=== PATIENT | female | born 1990 | race Caucasian/White ===

== ENCOUNTER 2019-02-13 08:05 | Emergency (ER) | payer SELFPAY ==
[~2019-02-13] VITALS: Ht 160 cm; Wt 83.0 kg
[~2019-02-13 08:05] MED LIST: CEPHALEXIN500 MG PO; CITALOPRAM HBR20 MG PO; CLINDAMYCIN HC300 MG PO; FLUOXETINE HCL20 MG PO; NORCO 5-325 TA1 EACH PO; PRENATAL CAPSU1 EACH PO; ZOFRAN ODT4 MG PO
[2019-02-13] MEDS ORDERED: PROMETHAZINE HC25 M1 PO (09:57)
== END 2019-02-13 10:17 | disposition home or self-care (01) ==
LOC: ED 08:05
DX: J02.9 Acute pharyngitis, unspecified (principal); F17.200 Nicotine dependence, unspecified, uncomplicated
CPT/HCPCS: 80053; 85025; 87880; 96361; 96374; 96375; 99284-25; J1885; J2405; J7030

== ENCOUNTER 2019-05-02 15:55 | Emergency (ER) | payer SELFPAY ==
[~2019-05-02] VITALS: Ht 160 cm; Wt 83.0 kg
[~2019-05-02 15:55] MED LIST changes: +PROMETHAZINE HC25 M1 PO
== END 2019-05-02 21:10 | disposition home or self-care (01) ==
LOC: ED 15:55
DX: K52.9 Noninfective gastroenteritis and colitis, unspecified (principal); F17.200 Nicotine dependence, unspecified, uncomplicated; Z71.6 Tobacco abuse counseling
CPT/HCPCS: 76705; 80053; 81001; 83690; 83735; 84703; 85025; 96361; 99284-25; 99406; J2405; J7030; J7040

== ENCOUNTER 2020-09-04 15:54 | Emergency (ER) | payer OTHER ==
[~2020-09-04] VITALS: Ht 160 cm; Wt 95.2 kg
--- NOTE | 2020-09-06 11:31 | EKG ---
[facility] [address] [facility] [place] [address] Signed Normal sinus rhythm Anterior infarct , age undetermined Abnormal ECG No previous ECGs available Confirmed by AIDEN FUNEZ MD ([id number]) on 09/06/2020 11:30:55 AM Electronically Signed By: AIDEN FUNEZ MD 09/06/20 113 PATIENT NAME: LINUS CHAPMAN Electrocardiogram DATE OF : 86 PHYSICIAN: AIDEN FUNEZ MD REPORT #: [id number] REPORT IS CONFIDENTIAL AND NOT TO BE RELEASED WITHOUT AUTHORIZATION
== END 2020-09-04 18:42 | disposition home or self-care (01) ==
LOC: ED 15:54
DX: R07.89 Other chest pain (principal); F17.200 Nicotine dependence, unspecified, uncomplicated
CPT/HCPCS: 71045; 80053; 84484; 85025; 93005; 93010; 99285-25

== ENCOUNTER 2022-03-28 13:24 | Emergency (ER) | payer OTHER ==
[~2022-03-28] VITALS: Ht 160 cm; Wt 74.8 kg
== END 2022-03-28 17:17 | disposition home or self-care (01) ==
LOC: ED 13:24
DX: H10.89 Other conjunctivitis (principal); F17.200 Nicotine dependence, unspecified, uncomplicated
CPT/HCPCS: 99283; A9270

== ENCOUNTER 2024-09-26 04:51 | Inpatient (IN) | payer OTHER ==
[~2024-09-26] VITALS: Ht 157.5 cm; Wt 76.2 kg
--- NOTE | ~2024-09-26 | OR ---
[facility] [address] [place], [place] [address] Draft DATE OF OPERATION: 09/26/2024 SURGEON: Raghav Hill DO PREOPERATIVE DIAGNOSES: 1. Intrauterine at 36 and six weeks gestation. 2. History of prior section. 3. Labor. POSTOPERATIVE DIAGNOSES: 1. Intrauterine at 36 and six weeks gestation. 2. History of prior section. 3. Labor. PROCEDURE PERFORMED: Repeat low transverse section. TECHNOLOGY TRAINER: PIPE FITTER GAS PIPE. ANESTHESIA: Spinal with postoperative TAP block. QUANTITATIVE BLOOD LOSS: 360 mL. COMPLICATIONS: None. DRAINS: Valverde to gravity. SPECIMENS: Cord blood for routine analysis. FINDINGS: Delivery of viable female , 6 pounds 15 ounces with Apgars of 8 and 9 born in the DEMETRIA position via low transverse uterine incision. Normal uterus, tubes, and ovaries other than a high scarred bladder that was easily taken down with a bladder flap. Clear amniotic fluid. No nuchal cord. GBS unknown and preoperative glucose was 95. PATIENT NAME: LINUS GONZALES OPERATIVE REPORT DATE OF : [birth year] REPORT #: [id number] PHYSICIAN: RAGHAV HILL (MIRIAN) PCP: RAGHAV HILL (MIRIAN) REPORT IS CONFIDENTIAL AND NOT TO BE RELEASED WITHOUT AUTHORIZATION [facility] [address] [place] [id number] Draft INDICATIONS: Ms. Gonzales is a very pleasant 34-year-old, G5, P4 with one prior , who presented to Labor and Delivery and advanced labor. complicated by history of prior with two interval successful VBACs. She planned on completing delivery at [facility]. However, she had not received any OB care for the past several weeks at [facility] and had not completed her 1 hour glucose or GBS screening. Upon presentation, patient was noted to be 9 cm and desired repeat . Risks, benefits, and alternatives were discussed in detail with the patient. Preoperative glucose was obtained and was 95. TECHNIQUE: The patient was taken to the OR where a time-out was performed to confirm correct patient and correct procedure. Spinal anesthesia was adequately established. The patient had been given terbutaline upon admission. The patient was then prepped and draped in the supine position with ICPs on a running and a bump under the right hip. A Valverde catheter was inserted. The patient received Ancef 2 g preoperatively and no heparin was indicated. Once spinal was noted to be adequate, a Pfannenstiel skin incision was made through the prior scar and carried down to the fascia. Fascia was nicked in the midline and fascial incision was extended bilaterally using curved Yee scissors. The fascia was grasped with Frances's, elevated, and the underlying rectus dissected off bluntly and sharply. The rectus was divided in the midline and the peritoneum was entered sharply. High-riding bladder was noted and the peritoneal incision was carefully extended cephalad using curved Yee scissors. Bladder flap was created using Metzenbaum scissors that freed the peritoneum of the bladder from the uterus and this was able to be at the lower uterine segment was able to be identified easily. An Johny self retractor was placed and hysterotomy was performed using a surgical scalpel in the lower uterine segment. Hysterotomy was extended bilaterally using blunt dissection. Amnion was ruptured for clear fluid. was delivered in the DEMETRIA position with the assistance of fundal pressure without difficulty. was vigorous and cried upon delivery and the patient had requested delayed cord clamping, which was observed. Cord was then doubly clamped and cut and the handed to waiting pediatric team for further care. The placenta was expressed, intact with a centrally inserted three-vessel cord. Bleeding was minimal. Pitocin was administered per protocol. The uterine cavity was cleared of any remaining products of conception or clot. Hysterotomy was repaired in two layers of 0 Monocryl. The first being a running locked layer and the second being a running imbricating layer in the vertical manner. Small amount of oozing was noted just left of the midline and this was made hemostatic with [id number] of 0 Monocryl. The pelvis was carefully examined and any clot was removed. The pelvis was confirmed to be hemostatic. Shahnaz was applied to the hysterotomy and to the bladder flap. The peritoneum was reapproximated using 2-0 Vicryl in a running nonlocked manner after removal of the Johny self tractor. PATIENT NAME: LINUS GONZALES OPERATIVE REPORT DATE OF : 86 REPORT #: [id number] PHYSICIAN: RAGHAV HILL (MIRIAN) DO PCP: RAGHAV HILL (MIRIAN) DO REPORT IS CONFIDENTIAL AND NOT TO BE RELEASED WITHOUT AUTHORIZATION [facility] [address] [place] [address] [place], [place] [address] Draft The rectus was made hemostatic with judicious use of Bovie electrocautery and was loosely plicated in the midline with three interrupted sutures of 0 Vicryl. Fascia was reapproximated using 0 Vicryl in a running nonlocked manner. Subcu was made hemostatic with judicious use of Bovie electrocautery and subcu was reapproximated using 3-0 Vicryl. Skin was reapproximated using a subcuticular absorbable evelyn without difficulty with excellent hemostasis and cosmesis. The uterus was Crede'd for scant amount of blood. The patient remained in the OR for postoperative TAP blocks per Anesthesia. Sponge, needle, and instrument counts were correct x2 at the end of the procedure. Mother and baby are recovering well. DO ANA LUISA Cuba/MODL /[id number] Copies: ~ PATIENT NAME: LINUS GONZALES OPERATIVE REPORT DATE OF : 86 REPORT #: [id number] PHYSICIAN: RAGHAV HILL (MIRIAN) PCP: RAGHAV HILL (MIRIAN) REPORT IS CONFIDENTIAL AND NOT TO BE RELEASED WITHOUT AUTHORIZATION
[~2024-09-26 04:51] MED LIST changes: +CEFDINIR300 MG PO; +PYRIDIUM200 MG PO
[2024-09-26] MEDS ORDERED: LACTATED RINGER'S 1,000 ML IV PRN (05:00)
[2024-09-26] MEDS ORDERED: SOD+POT BICARB/CITRIC ACID 2 EA TABLET.EFF PO ONE (05:00)
[2024-09-26 05:13] LABS: HEMOGLOBIN 12.3 g/dL (11.2-15.7); MCH 28.4 PG (25.6-32.2); MCHC 33.2 g/dL (32.2-35.5); MCV 85.5 fL (79.4-94.8); RBC 4.33 M/uL (3.93-5.22)
[2024-09-26] MEDS ORDERED: TERBUTALINE SULFATE 1 MG/ML AMP SUB-Q ONE (05:15)
[2024-09-26 05:29] LABS: AMPHETAMINES, URINE NEGATIVE (NEGATIVE); BARBITURATES, URINE NEGATIVE (NEGATIVE); BENZODIAZEPINE, URINE NEGATIVE (NEGATIVE); BUPRENORPHINE, URINE NEGATIVE (NEGATIVE); CANNABINOID, URINE NEGATIVE (NEGATIVE); COCAINE, URINE NEGATIVE (NEGATIVE); ECSTASY, URINE NEGATIVE (NEGATIVE); FENTANYL, URINE NEGATIVE (NEGATIVE); METHADONE, URINE NEGATIVE (NEGATIVE); OPIATES, URINE NEGATIVE (NEGATIVE); OXYCODONE, URINE NEGATIVE (NEGATIVE); PHENCYCLIDINE, URINE NEGATIVE (NEGATIVE)
[2024-09-26 05:48] LABS: ABO O; ANTIBODY SCREEN NEGATIVE; RH POSITIVE
[2024-09-26] MEDS ORDERED: LIDOCAINE HCL 2% 5 ML SDV ONE (05:53)
[2024-09-26] MEDS ORDERED: DEXAMETHASONE SOD PHOS 4 MG/ML VIAL ONE ×2 (05:53)
[2024-09-26] MEDS ORDERED: Ropivacaine HCl 0.5% 30 ML VIAL ONE (05:53)
[2024-09-26] MEDS ORDERED: SODIUM CHLORIDE 0.9% 60 ML IV ONE (05:53)
[2024-09-26] MEDS ORDERED: OXYTOCIN 10 UNITS/ML VIAL ONE (05:53)
[2024-09-26] MEDS ORDERED: BUPIVACAINE 0.75% IN DEXTROSE 2 ML AMP ONE (05:53)
[2024-09-26] MEDS ORDERED: ePHEDrine sulfate 50 MG/ML AMP ONE (05:53)
[2024-09-26] MEDS ORDERED: PHENYLEPHRINE HCL 10 MG/ML VIAL ONE (05:53)
[2024-09-26] MEDS ORDERED: ondansetron HCL 4 MG/2 ML VIAL ONE (05:53)
[2024-09-26] MEDS ORDERED: MORPHINE SULFATE 1 MG/ML VIAL ONE (05:53)
[2024-09-26] MEDS ORDERED: dexmedeTOMIDine HCl 200 MCG/2 ML VIAL ONE (05:53)
[2024-09-26] MEDS ORDERED: LACTATED RINGER'S 1,000 ML IV SCH (06:25)
[2024-09-26] MEDS ORDERED: ondansetron HCL 4 MG/2 ML VIAL IV PRN ×3 (06:30→07:00)
[2024-09-26] MEDS ORDERED: METOCLOPRAMIDE HCL 10 MG/2 ML SDV IV PRN (06:30)
[2024-09-26] MEDS ORDERED: PROMETHAZINE HCL 25 MG TAB PO PRN (06:30)
[2024-09-26] MEDS ORDERED: OXYTOCIN/0.9 % SODIUM CHLORIDE 500 ML IV SCH (06:30)
[2024-09-26] MEDS ORDERED: bisacodyL 10 MG SUPP PR PRN (06:30)
[2024-09-26] MEDS ORDERED: OXYCODONE HCL 5 MG TAB PO PRN (06:30)
[2024-09-26] MEDS ORDERED: PROCHLORPERAZINE EDISYLATE 10 MG/2 ML VIAL IV PRN (06:30)
[2024-09-26] MEDS ORDERED: PROMETHAZINE HCL 25 MG SUPP PR PRN (06:30)
[2024-09-26] MEDS ORDERED: OXYCODONE/APAP 5/325 TAB PO PRN (06:30)
[2024-09-26] MEDS ORDERED: HYDROCODONE/ACETA 5/325 TAB PO PRN (06:30)
--- NOTE | 2024-09-26 06:41 | NUR ---
09/26/24 0641 Halle Love 0631-PATIENT ARRIVED TO ROOM 1O3 RECOVERY. PATIENT AWAKE DENIES PAIN OR NAUSEA. SPINAL LEVEL T10. FUNDUS SLIGHTLY TOWARDS RIGHT FIRM LIGHT RUBRA DRAINAGE. IVF INFUSING TO RIGHT AC. FRIEND AT BEDSIDE. 0641-PATIENT AWAKE DENIES PAIN OR NAUSEA. HOLDING BABY. RA 98% RR EVEN.
[2024-09-26] MEDS ORDERED: NALOXONE HCL 0.4 MG SYR IV PRN ×2 (07:00)
[2024-09-26] MEDS ORDERED: fentaNYL citrate 50 MCG/ML SDV IV PRN (07:00)
[2024-09-26] MEDS ORDERED: diphenhydrAMINE HCL 50 MG/ML VIAL IV PRN (07:00)
[2024-09-26] MEDS ORDERED: HYDROmorphone HCL 1 MG/ML SYR IV PRN (07:00)
[2024-09-26] MEDS ORDERED: KETOROLAC TROMETHAMINE 30 MG/ML VIAL IV PRN (07:00)
[2024-09-26] MEDS ORDERED: IBLOOD GLUCOSE TEST STRIP 1 EA TEST VI PRN (07:00)
[2024-09-26] MEDS ORDERED: CEFAZOLIN SODIUM 2 GM/20 ML SYR IV SCH (07:00)
[2024-09-26] MEDS ORDERED: SIMETHICONE 80 MG CHEW PO SCH (07:00)
[2024-09-26] MEDS ORDERED: MORPHINE SULFATE 4 MG/ML VIAL IV PRN (07:00)
[2024-09-26] MEDS ORDERED: KETOROLAC TROMETHAMINE 30 MG/ML VIAL IV SCH (08:00)
[2024-09-26] MEDS ORDERED: SENNOSIDES/DOCUSATE 1 EA TAB PO SCH (09:00)
[2024-09-26] MEDS ORDERED: WITCH HAZEL/GLYCERIN 1 EA PAD TOP PRN (16:30)
[2024-09-26] MEDS ORDERED: ENOXAPARIN SODIUM 40 MG/0.4 ML SYR SUB-Q SCH (17:00)
[2024-09-26 19:29] VITALS: BP 103/67
[2024-09-26] MEDS ORDERED: IBUPROFEN 600 MG TAB PO SCH (21:15)
[2024-09-27] MEDS ORDERED: IBUPROFEN 600 MG TAB PO SCH ×2 (02:00→08:00)
[2024-09-27] MEDS ORDERED: ACETAMINOPHEN 325 MG TAB PO PRN (02:00)
[2024-09-27] MEDS ORDERED: LACTATED RINGER'S 1,000 ML IV SCH (05:00)
[2024-09-27 05:27] LABS: HEMATOCRIT 25.9 % (34.1-44.9); HEMOGLOBIN 8.6 g/dL (11.2-15.7); MCH 28.4 PG (25.6-32.2); MCHC 33.2 g/dL (32.2-35.5); MCV 85.5 fL (79.4-94.8); RBC 3.03 M/uL (3.93-5.22)
[2024-09-27] MEDS ORDERED: ondansetron HCL 4 MG/2 ML VIAL IV PRN (07:00)
[2024-09-27] MEDS ORDERED: LIDOCAINE HCL 4% 1 EACH PATCH TD SCH (17:45)
--- NOTE | 2024-09-28 08:33 | PR ---
[facility] [address] [place], [place] [address] Signed PP Progress Notes Datetime Report Generated by CPN: 09/28/2024 08:32 SUBJECTIVE: [id number] Pain: Within Normal Limits Nausea/Vomiting: Denies Flatus: Yes Bowel Movement: No Vital Signs: [id number] Vital Signs: Reviewed; Within Normal Limits EXAM: Ongoing Cardiovascular: Normal Respiratory: Normal Abdomen/Uterus: Normal Lochia: Normal Vulva/Perineum: Normal Breasts: Not Done CVA Tenderness: Normal Extremities: Normal Incision: Normal Progress: Normal Exam Comments: Fundus firm U-2 nontender. Incision healing well. Appropriate postop tenderness IMPRESSION/PLAN/PROCEDURES: [id number] Impression: Normal Progression Other Impression: Acute on chronic anemia Plan: Discharge Procedures: None Progress Notes: Pt seen and examined. Doing well. Ambulating, voiding, and tolerating full diet. Pain and lochia minimal. . No fevers/chills/lightheadedness. No other concerns. Desires d/c home today. Planning pp bilateral salpingectomy for contraception. No other questions or concerns. Reviewed d/c medications and instructions. F/U 2 wks pp visit to plan salpingectomy Signing Physician: Raghav Hill DO Copies: ~ *Electronically Signed* 09/28/24 0832 RAGHAV HILL (MIRIAN) DO PATIENT NAME: LINUS CHAPMAN PROGRESS NOTE DATE OF : 86 PHYSICIAN: RAGHAV HILL (JD) DO RPT #: [id number] REPORT IS CONFIDENTIAL AND NOT TO BE RELEASED WITHOUT AUTHORIZATION
== END 2024-09-28 12:53 | disposition home or self-care (01) | DRG 788 ==
LOC: FBCO 04:51 → FBC 05:09
PROVIDERS: ADMIT Obstetrics & Gynecology; ATTEND Obstetrics & Gynecology
PROC: 0UT90ZZ Resection of Uterus, Open Approach (ICD-10-PCS; 2024-09-26)
PROC: 10D00Z1 Extraction of Products of Conception, Low, Open Approach (ICD-10-PCS; principal; 2024-09-26 05:36)
DX: O34.211 Maternal care for low transverse scar from previous cesarean delivery (principal); O99.02 Anemia complicating childbirth; O99.344 Other mental disorders complicating childbirth; F32.A Depression, unspecified; F41.9 Anxiety disorder, unspecified; O99.892 Other specified diseases and conditions complicating childbirth; M54.9 Dorsalgia, unspecified; G89.29 Other chronic pain; O99.334 Smoking (tobacco) complicating childbirth; F17.210 Nicotine dependence, cigarettes, uncomplicated; Z37.0 Single live birth; Z3A.39 39 weeks gestation of pregnancy
CPT/HCPCS: 01961; 36415; 76942; 80307; 85027; 86850; 86900; 86901; A9270; J0690; J1100; J1650; J2003; J2274; J2371; J2405; J2590; J2795; J3105